=== PATIENT | female | born 1960 | race Caucasian/White ===

== ENCOUNTER 2016-12-03 10:09 | Day surgery (SDC) | payer OTHER ==
--- NOTE | 2016-11-26 08:27 | HP ---
PREOPERATIVE HISTORY AND PHYSICAL EXAM: DATE OF ADMISSION/SURGERY: 12/03/16 ATTENDING SURGEON: Dr. Isabela Stewart. PROCEDURE: Left shoulder removal of hardware, open acromioplasty, lysis of adhesions, and manipulation. DATE OF OFFICE VISIT: 11/25/16 CHIEF COMPLAINT: Left shoulder pain. HISTORY OF PRESENT ILLNESS: Ms. Almeida is a 56-year-old female who is status post left humerus open reduction and internal fixation. She is having pain from her hardware and stiffness with range of motion postoperatively. She has failed conservative measures which included Medrol Dosepak and therapy and therefore has agreed to undergo a left shoulder removal of hardware, open acromioplasty, lysis of adhesions, and manipulation with Dr. Stewart on 12/03/16. PAST MEDICAL HISTORY: 1. 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 2. Depression. 3. Anxiety. PAST SURGICAL HISTORY: 1. Tubal ligation. 2. Left shoulder ORIF. MEDICATIONS: 1. Cymbalta. 2. . ALLERGIES: None. FAMILY HISTORY: Denies. SOCIAL HISTORY: Lives with her spouse. 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 She denies tobacco or alcohol use. REVIEW OF SYSTEMS: A 14-point review of systems was reviewed with the patient and found to be negative. Negative for history of DVT, PE, bleeding disorders, or anesthesia problems. PHYSICAL EXAMINATION GENERAL: Well-developed, well-nourished 56-year-old female in no acute distress. VITAL SIGNS: Height 52, weight 180, pulse 86, blood pressure 150/81, respiratory rate 18, BMI 32.9. HEENT: Normocephalic, atraumatic. PERRLA. NECK: Supple. Throat clear. PULMONARY: Lungs clear to auscultation bilaterally. No wheezing, rhonchi, or rales. CARDIO: Regular rate and rhythm. S1, S2. No murmurs, gallops, or rubs. No edema. ABDOMEN: Positive bowel sounds. Soft, nontender. NEUROLOGIC: Alert and oriented x3. Cranial nerves grossly intact. Sensation intact to light touch. MUSCULOSKELETAL: Left upper extremity: Well-healing surgical incision that is tender to palpation over the hardware. Forward flexion to 30, abduction to 90, external rotation to 40, internal rotation to the lateral hip. Stable range of motion of the left elbow, wrist, and hand. +2 radial pulse. Sensation is intact to light touch distally. STUDIES: CT reveals presence of hardware with a healing greater tuberosity fracture with some displacement. 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 PLAN: The patient is scheduled to undergo a left shoulder removal of hardware, open acromioplasty, lysis of adhesions, and manipulation with Dr. Stewart on . She will return to the office 10 to 14 days postop for followup and suture removal. A prescription for Percocet was e-prescribed to the patient's pharmacy for postoperative pain management. She was instructed to get an over- the- counter stool softener for opioid-induced constipation. GABI SHAH [id number]/[facility] #: [id number] MTDDaniel
[~2016-12-03 10:09] MED LIST: Buffered Lidocaine 1% SYR 3ML* 3 ML/SYR SYRINGE INTRADERM ONE; Dexamethasone IV* 4 MG/ML 1 ML (4 MG) IV SLOW PU ONE; Famotidine IV* 10 MG/ML 2 ML (20 mg) IV ONE
[2016-12-03] MEDS ORDERED: Midazolam* 1 MG/ML 5 ML VIAL (5 MG) ONE (10:24)
[2016-12-03] MEDS ORDERED: fentaNYL* 50 MCG/ML 2 ML VIAL (100 MCG VIAL) ONE (10:24)
[2016-12-03] MEDS ORDERED: Atracurium* 10 MG/ML 10 ML VIAL ONE (10:24)
[2016-12-03] MEDS ORDERED: Ondansetron INJ* 2 MG/ML VIAL ONE (10:25)
[2016-12-03] MEDS ORDERED: Ketorolac INJ* 30 MG/ML 1 ML VIAL ONE (10:25)
[2016-12-03] MEDS ORDERED: ROPIVACAINE 5 MG/ML 30 ML BTL (0.5%) ONE (10:25)
[2016-12-03] MEDS ORDERED: Propofol* 10 MG/ML 20 ML BTL IV PUSH ONE (10:25)
[2016-12-03] MEDS ORDERED: Bupivacaine 0.25% SDV* 30 ML ONE (10:26)
[2016-12-03] MEDS ORDERED: Dexamethasone IV* 4 MG/ML 1 ML (4 MG) ONE (10:34)
[2016-12-03] MEDS ORDERED: Famotidine IV* 10 MG/ML 2 ML (20 mg) ONE (10:34)
[2016-12-03] MEDS ORDERED: ceFAZolin 2 GM PREMIX (*) 2 GM/50 ML BAG IVPB ONE (10:34)
[2016-12-03] MEDS ORDERED: DiMENhydriNATE IV* 50 MG/ML VIAL IV PUSH PRN (10:40)
[2016-12-03] MEDS ORDERED: oxyCODONE/Acetamin 5/325 MG* TAB PO PRN (10:40)
[2016-12-03] MEDS ORDERED: Ondansetron INJ* 2 MG/ML VIAL IV PRN (10:40)
[2016-12-03] MEDS ORDERED: HYDROmorphone INJ* 1 MG/ML CARPUJECT SYRINGE IV PRN (10:40)
[2016-12-03] MEDS ORDERED: fentaNYL* 50 MCG/ML 2 ML VIAL (100 MCG VIAL) IV PRN (10:40)
[2016-12-03] MEDS ORDERED: EPHEDrine (Pressors)* 50 MG/ML VIAL ONE (11:42)
[2016-12-03] MEDS ORDERED: Phenylephrine IV* 40 MCG/ML 10 ML SYRINGE ONE (11:49)
[2016-12-03 15:21] VITALS: BP 111/70
--- NOTE | 2016-12-04 00:13 | OP ---
DATE OF OPERATION: 12/03/16 [facility] DATE OF : 58 SURGEON: Isabela Stewart MD FUR LINER: GABI Aquino. Merchandise Pickup/Receiving Associate was needed for the entirety of the case to help with retraction, positioning, and was utilized throughout all portions of the case. ANESTHESIOLOGIST: Dr. Westfall. ANESTHESIA: General with interscalene block. PRE-OP DIAGNOSES: Left shoulder retained hardware and ankylosis. POST-OP DIAGNOSES: Left shoulder retained hardware and ankylosis. OPERATIVE PROCEDURE: Left shoulder removal of hardware, 10 screws and 1 plate, as well as subacromial decompression without acromioplasty, open, and lysis of adhesions and manipulation under anesthesia. INDICATIONS: Margarita Almeida is a 56-year-old female who underwent open reduction and internal fixation of her left shoulder for proximal humerus fracture in April of last year. She was doing well, but started to notice the limit in how much motion she was getting back. She was having persistent pain and discomfort. We talked about how her greater tuberosity had lost some of its purchase and was possibly causing some impingement as well as the hardware itself and the stiffness associated with the postoperative fracture. She has tried an injection, she has tried physical therapy and has failed conservative measures. Risks and benefits of surgery were discussed at length and they included but are not limited to bleeding, infection, damage to nerves, vessels, surrounding structures, wound nonhealing, persistent pain, need for further surgery or fracture, risk of DVT, risk of anesthesia, and incomplete relief of symptoms. She has elected to proceed. COMPLICATIONS: None. ESTIMATED BLOOD LOSS: 25 cc. DESCRIPTION OF PROCEDURE: The patient was greeted in the preoperative area by the attending surgeon. Correct extremity was marked and consent was confirmed. The patient was then then brought back to the operating suite where she was placed in supine position on the operating table. She underwent interscalene nerve block, after which she underwent general anesthesia. Her shoulder was quite stiff and exam after the patient was asleep was then done. She was able to forward flex to about 130, abduct to about 90, externally rotate of 30 degrees. The left shoulder was then prepped and draped in the usual sterile fashion beginning with a chlorhexidine soap, scrub and alcohol, and the final prep with ChloraPrep, after the patient was positioned on lazy beach-chair position. After appropriate surgical pause, indicating side, site, procedure, administration of antibiotics, the previous incision was incised using a 15 blade. The soft tissues were carefully dissected using Metzenbaum scissors. Eventually, the previous sutures demarcating the deltopectoral interval were identified. They were then removed and carefully the interval was developed. The cephalic vein was identified and retracted laterally. There was abundant scar that was apparent. Then, the clavipectoral fascia was identified again and coracoid was palpated. There was abundant scar that was apparent. The curved Maier scissors and blunt dissectors were then used to help remove the abundant anterior scar. This carefully allowed for placement of a curved Hohmann's. This was done. Deltoid adhesions were carefully removed again using blunt devices. As this was developed more, this helped to expose the anterior aspect of the shoulder. The biceps groove was palpated. The pec was identified. As much of the adhesions could be released were released. Eventually, this allowed for exposure of the plate and screws. The Bovie was used to remove the abundant scar above the screws. The plate was identified. Adhesions were removed even more. 9 locking screws and 1 nonlocking screw were removed, the plate was removed in its entirety. The adhesions were removed from the plate. At this point, attention was directed to the subacromial space. Using a curved Maier scissors as well as blunt dissection, the subacromial space was carefully freed of the adhesions. The undersurface of the acromion was identified. The electrocautery device was used to remove the excess soft tissue. At this point, a small round bur was then used to do a small acromioplasty. The rasp was used to smooth this out. A final sweep through the subacromial and subdeltoid space was done and swept with the finger and the shoulder was taken through range of motion. It was then forward flexed to about 150, abducted to about 110, externally rotated to about 65. The wound was copiously irrigated. The deltopectoral interval was closed again with #2 Ti -Cron in case she needs another surgery down the road. The skin was closed in layers with 2-0 Vicryl and 3-0 Monocryl. She did make a small keloid with the previous incision; this was ellipsed out. Sterile dressings were applied and she was awoken from anesthesia and transferred to PACU in stable condition. POSTOPERATIVE PLAN: She will be discharged on pain medication as well as antibiotics. She will begin working on passive range of motion immediately. I will have her start therapy next week. DVT prophylaxis was considered, but deferred due to no previous personal or family history. I will see the patient back in about 10 to 14 days. [id number]/[facility] #: [id number] MTDD
== END 2016-12-03 15:00 | disposition home or self-care (01) ==
LOC: OR 10:09
PROVIDERS: ATTEND Orthopaedic Surgery
DX: T84.82XA Fibrosis due to internal orthopedic prosthetic devices, implants and grafts, initial encounter (principal); Y83.1 Surgical operation with implant of artificial internal device as the cause of abnormal reaction of the patient, or of later complication, without mention of misadventure at the time of the procedure; M24.612 Ankylosis, left shoulder; J98.9 Respiratory disorder, unspecified
CPT/HCPCS: 88300; J0690; J1100; J1885; J2250; J2405; J2704; J2795; J3010

== ENCOUNTER 2017-04-02 07:09 | Emergency (ER) | payer OTHER ==
[2017-04-02] MEDS ORDERED: Tetan/Diph/Pertus SYR(Tdap)* 0.5 ML SYR(BOOSTRIX) use SYR IM ONE (09:15)
--- NOTE | 2017-04-02 09:15 | ED ---
Head Injury - HPI Summary HPI Summary: Pt here w/ slip and fall while stepping backwards out of shower - hit the back of her head against a knob on her cupboard door - lac w/ bleeding. She applied pressure and came here. Denies LOC, DA SILVA, change in vision, N/V, neck pain, photophobia. She denies any other areas of pain or injury as a result of fall. Took ibuprofen prior to arrival. Denies anti-coagulant therapy. Unsure if imms are UTD. - History Of Current Complaint Chief Complaint: EDLacSutureRecheck Stated Complaint: HEAD LAC Time Seen by Provider: 04/02/17 08:38 Hx Obtained From: Patient, Family/Craniologist - Pain Intensity: 2 - Allergies/Home Medications Allergies/Adverse Reactions: Allergies Allergy/AdvReac Type Severity Reaction Status Date / Time No Known Allergies Allergy Verified 04/02/17 07:18 PMH/Surg Hx/FS Hx/Imm Hx Previously Healthy: Yes Endocrine/Hematology History: Denies: Hx Anticoagulant Therapy, Hx Blood Disorders, Hx Unexplained Bleeding Cardiovascular History: Denies: Hx Pacemaker/ICD Respiratory History: Reports: Other Respiratory Problems/Disorders - REACTIVE AIRWAY WHEN ILL WITH COUGH-USES INHALER Musculoskeletal History: Reports: Hx Arthritis - OSTEOARTHRITIS IN FINGERS, Other Musculoskeletal History - Left shoulder, hx of fracture April 2016 Sensory History: Reports: Hx Contacts or Glasses - GLASSES Denies: Hx Hearing Aid Opthamlomology History: Reports: Hx Contacts or Glasses - GLASSES Psychiatric History: Reports: Hx Anxiety - ON MED, Hx Depression - ON MED - Cancer History Hx Chemotherapy: No Hx Radiation Therapy: No - Surgical History Surgery Procedure, Year, and Place: TUBAL LIGATION-1990 [facility] LT SHOULDER APRIL 28 2016 Hx Anesthesia Reactions: No - Immunization History Immunizations Up to Date: Unable to Obtain/Confirm Infectious Disease History: No Infectious Disease History: Denies: History Other Infectious Disease, Traveled Outside the [place] in Last 30 Days - Family History Known Family History: Negative: Cardiac Disease, Hypertension, Diabetes - Social History Occupation: Employed Full-time Lives: With Family Alcohol Use: Occasionally Alcohol Amount: 1 drink A MONTH Hx Substance Use: No Substance Use Type: Reports: None Substance Use Comment - Amount & Last Used: 3-4 cups of tea per day Hx Tobacco Use: Yes Smoking Status (MU): Former Smoker Amount Used/How Often: 1 PPD smoked 30 years Length of Time of Smoking/Using Tobacco: 35 YRS Have You Smoked in the Last Year: No Review of Systems Constitutional: Negative Negative: Fever, Chills, Fatigue Eyes: Negative Negative: Photophobia, Blurred Vision, Diplopia ENT: Negative Negative: Dental Pain Negative: Chest Pain Negative: Shortness Of Breath Negative: Vomiting, Nausea Positive: no symptoms reported Musculoskeletal: Negative Skin: Other - see HPI Neurological: Negative Negative: Headache, Weakness, Paresthesia, Numbness Psychological: Normal All Other Systems Reviewed And Are Negative: Yes Physical Exam Triage Information Reviewed: Yes Vital Signs On Initial Exam: Initial Vitals Temp Pulse Resp BP Pulse Ox 98.2 F 85 16 157/76 98 04/02/17 07:18 04/02/17 07:18 04/02/17 07:18 04/02/17 07:18 04/02/17 07:18 Vital Signs Reviewed: Yes Appearance: Positive: Well-Appearing, No Pain Distress, Well-Nourished Skin: Positive: Warm - linear laceration over Lt parietal scalp - oozing blood - clean/no debris Head/Face: Positive: Normal Head/Face Inspection - NTTP, no gross deformity or laxity w/ palpation; no battlesign Eyes: Positive: Normal, EOMI, LITTLE, Conjunctiva Clear ENT: Positive: Hearing grossly normal, TMs normal - no hemotympanum. Negative: Nasal drainage - no sign of epistaxis Dental: Negative: Dental Fracture @ Neck: Positive: Supple, Nontender Respiratory/Lung Sounds: Positive: Breath Sounds Present Cardiovascular: Positive: Normal Musculoskeletal: Positive: Normal Neurological: Positive: Normal, Sensory/Motor Intact, Alert, Oriented to Person Place, Time, CN Intact II-III Psychiatric: Positive: Normal Procedures - Laceration/Wound Repair 1 Location: head Description: Linear Anesthesia: Local - 5cc, Lido, Epi Length, Depth and Shape: 4.5 cm x 4mm Betadine Prep?: Yes Irrigated w/ Saline (ccs): 100 - hibaclens solution Laceration/Wound Explored: clean Closure: [place] #__ - 6 Layer Closure?: No Sterile Dressing Applied?: Yes - triple anbx Diagnostics - Vital Signs Vital Signs Temp Pulse Resp BP Pulse Ox 04/02/17 07:24 98.2 F 85 16 157/76 98 04/02/17 07:18 98.2 F 85 16 157/76 98 - Laboratory Lab Statement: Any lab studies that have been ordered have been reviewed, and results considered in the medical decision making process. Head Injury Course/Dx Course Of Treatment: Pt denies neuro deficit sx and clinical exam in neg for neuro deficit. She is < 65 y.o. and denies anti-coagulant use. No CT head performed however discussed danger s/sx of when to return to ED should neuro deficits present. Education about wound care. Pt and agree w/ plan. - Diagnoses Provider Diagnoses: Laceration of head, Head injury, Fall from standing Discharge - Discharge Plan Condition: Stable Disposition: HOME Patient Education Materials: Laceration (ED), Staple Care (ED), Head Injury (ED ) Referrals: Beltran Vázquez MD [Primary Care Provider] - Additional Instructions: Gently wash wound daily with anti-bacterial soap and water - rinse well and pat dry with clean cloth - apply triple antibiotic ointment after each cleaning. Follow-up with PCP in 7-10 days for wound check and staple removal. Call today to schedule an appointment. *If you develop purulent drainage, fever, chills and/or headache, visual change , vomiting, confusion, return to ED
[2017-04-02 09:34] VITALS: BP 156/77
== END 2017-04-02 09:35 | disposition home or self-care (01) ==
LOC: ED 07:09
DX: S01.01XA Laceration without foreign body of scalp, initial encounter (principal); S09.90XA Unspecified injury of head, initial encounter; W18.00XA Striking against unspecified object with subsequent fall, initial encounter; Y93.89 Activity, other specified; Y92.002 Bathroom of unspecified non-institutional (private) residence as the place of occurrence of the external cause; Z23 Encounter for immunization; J45.909 Unspecified asthma, uncomplicated; F41.9 Anxiety disorder, unspecified; F32.9 Major depressive disorder, single episode, unspecified; Z87.891 Personal history of nicotine dependence
CPT/HCPCS: 12002; 90471; 90715; 99282

== ENCOUNTER 2023-08-19 06:00 | Observation (INO) ==
[~2023-08-19 06:00] MED LIST changes: -Buffered Lidocaine 1% SYR 3ML* 3 ML/SYR SYRINGE INTRADERM ONE; -Dexamethasone IV* 4 MG/ML 1 ML (4 MG) IV SLOW PU ONE; -Famotidine IV* 10 MG/ML 2 ML (20 mg) IV ONE; +HYDROmorphone 1 MG/1 ML SYRINGE IV PRN; +Naloxone 0.4 mg VIAL 0.4 mg/ml 1 ml VIAL IV PRN; +Ondansetron 4 mg VIAL 2 MG/ML 2 ml VIAL IV PRN; +fentaNYL 100 mcg/2 ml 50 MCG/ML VIAL IV PRN
[2023-08-19] MEDS ORDERED: Buffered Lidocaine 1% SYRIN 1 ml ONE (06:24)
[2023-08-19] MEDS ORDERED: ceFAZolin 2 GM PREMIX 2 GM/50 ML BAG ONE (06:24)
[2023-08-19 06:37] LABS: Rapid COVID-19 Molecular Undetected (Undetected)
[2023-08-19] MEDS ORDERED: Propofol 10 MG/ML 20 ML BTL ONE (06:58)
[2023-08-19] MEDS ORDERED: fentaNYL 100 mcg/2 ml 50 MCG/ML VIAL ONE ×2 (06:59→09:52)
[2023-08-19] MEDS ORDERED: Phenylephrine IV 10 MG/ML 1 ml VIAL ONE (07:01)
[2023-08-19] MEDS ORDERED: Rocuronium 50 mg VIAL 10 mg/ml 5 ml VIAL (50 mg) ONE ×2 (07:01→09:21)
[2023-08-19] MEDS ORDERED: Lidocaine 2% PF 5 ML VIAL ONE (07:01)
[2023-08-19] MEDS ORDERED: Midazolam 2 mg/2 ml VIAL 1 mg/ml 2 ml VIAL (2 mg) ONE (07:09)
[2023-08-19] MEDS ORDERED: Dexamethasone IV 4 MG/ML VIAL 1 ml VIAL ONE ×3 (07:11→12:58)
[2023-08-19] MEDS ORDERED: Lidocaine 1% MPF 5 ML VIAL ONE (07:39)
[2023-08-19] MEDS ORDERED: ROPIVACAINE 5 MG/ML 30 ML BTL (0.5%) ONE (07:39)
[2023-08-19] MEDS ORDERED: Vancomycin 1,000 MG VIAL ONE (08:25)
[2023-08-19] MEDS ORDERED: Ondansetron 4 mg VIAL 2 MG/ML 2 ml VIAL ONE ×2 (08:39→12:58)
[2023-08-19] MEDS ORDERED: Levalbuterol HFA INHALER MDI ONE (11:34)
[2023-08-19] MEDS ORDERED: Lactulose 30 ml UDC PO PRN (12:08)
[2023-08-19] MEDS ORDERED: Ondansetron 4 mg VIAL 2 MG/ML 2 ml VIAL IV PRN (12:08)
[2023-08-19] MEDS ORDERED: Morphine 2 MG/ML SYRINGE IV PRN (12:08)
[2023-08-19] MEDS ORDERED: Ondansetron ODT 4 mg TAB 4 MG TAB PO PRN (12:08)
[2023-08-19] MEDS ORDERED: Magnesium Hydroxide LIQ 30 ML UDC PO PRN (12:08)
[2023-08-19] MEDS ORDERED: Buffered Lidocaine 1% SYRIN 1 ml INTRADERM ONE (13:05)
[2023-08-19] MEDS ORDERED: Albuterol HFA INHALER 8 gm MDI INH PRN (13:34)
[2023-08-19] MEDS: Lactated Ringers 1000 ml BAG 1,000 ML IV SCH (13:50)
[2023-08-19] MEDS ORDERED: Lactated Ringers 1000 ml BAG 1,000 ML IV SCH (14:00)
[2023-08-19] MEDS: ceFAZolin 1 GM ADVAN 1 GM in NS 0.9% 50 ML 50 ML IVPB SCH (16:31)
[2023-08-19] MEDS: Magnesium Hydroxide LIQ 30 ML UDC PO SCH (20:29)
[2023-08-19] MEDS ORDERED: Latanoprost 0.005% 2.5 ml BTL BOTH EYES SCH (21:00)
[2023-08-19] MEDS ORDERED: DULoxetine DR 60 mg CAP PO SCH (21:00)
[2023-08-20] MEDS: Lactated Ringers 1000 ml BAG 1,000 ML IV SCH (00:14)
[2023-08-20] MEDS: ceFAZolin 1 GM ADVAN 1 GM in NS 0.9% 50 ML 50 ML IVPB SCH ×2 (00:18→09:04)
[2023-08-20 06:24] LABS: Hematocrit 32.7 % (35-45); Hemoglobin 10.8 g/dL (11.5-14.3); Mean Platelet Volume 7.6 fL (7.5-11.2); Platelet Count 227 10^3/uL (150-450)
[2023-08-20 06:38] LABS: Calcium 8.9 mg/dL (8.6-10.3); Creatinine, Serum 0.49 mg/dL (0.51-0.95); Potassium 4.1 mmol/L (3.5-5.0); eGFR CKD-EPI 105.2 (>60)
[2023-08-20] MEDS ORDERED: Vitamin THERAPEUTIC TAB PO SCH (09:00)
[2023-08-20] MEDS: Magnesium Hydroxide LIQ 30 ML UDC PO SCH (09:07)
[2023-08-20 09:49] VITALS: BP 122/61
== END 2023-08-20 13:05 | disposition home or self-care (01) ==
LOC: SSU 06:00 → OR 06:00
PROVIDERS: ADMIT Orthopaedic Surgery; ATTEND Orthopaedic Surgery